=== PATIENT | male | born 1935 | race Caucasian/White ===

== ENCOUNTER 2018-09-21 22:06 | Emergency (ER) | payer MEDICARE, SELFPAY ==
[2018-09-21 22:08] VITALS: BP 151/66; PULSE 76; RESP 14; TEMP 36.6; O2SAT 97; BMI 27.6
--- NOTE | 2018-09-21 22:51 | CT_ITS ---
HISTORY: LT ARM WEAKNESS,UNABLE TO MOVE LT ARM EARLIER TONIGHT BUT RESOLVED NOWHX:CVA,HTN EXAMINATION: CT Head or Brain W/O Contrast TECHNIQUE: Multiple axial images were obtained of the brain without intravenous contrast. A radiation dose optimization technique was used for this scan. IV Contrast dosage and agent: None. COMPARISON: None FINDINGS: Normal ventricles. Age appropriate cerebral cortical atrophy. Mild cerebellar atrophy, more so on the right. No intracranial mass, hemorrhage, or acute parenchymal abnormality. The pineal gland is calcified and midline. No suspicious extra-axial fluid collection. Bilateral carotid atherosclerotic calcifications. The mastoids appear clear. Bony defect of the right frontal bone and right supraorbital rim. Corresponding defect of the anterior wall of the right frontal sinus with ipsilateral sinus opacification. The posterior wall of the right frontal sinus appears intact. CT/Brain/Head without Contrast IMPRESSION: 1. Negative for intracranial hemorrhage or acute parenchymal abnormality. 2. Mild cerebellar atrophy. 3. Chronic appearing bony defect of the right frontal skull which may be related to old trauma. Details above. Please correlate clinically. Individualized dose optimization techniques were used for this CT. at 0017 Reported and signed by: Holger Talbot MD Electronically Signed: Holger Talbot, at 0:15 EDT Tel , Service support ,
--- NOTE | 2018-09-21 22:51 | EKG12_ITS ---
Test Reason : UPPER EXTREMITY Blood Pressure : / mmHG Vent. Rate : 066 BPM Atrial Rate : 066 BPM P-R Int : 188 ms QRS Dur : 086 ms QT Int : 402 ms P-R-T Axes : 052 -04 039 degrees QTc Int : 421 ms Normal sinus rhythm Normal ECG Confirmed by JAMA[place] CH, DESTINEY ([id number]), continuity editor NABIL NICHOLS ([id number]) on 09/23/2018 9:32:14 AM Referred By: RAMAN Confirmed By:DESTINEY BERUMEN MD
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
[2018-09-21 23:25] VITALS: BP 157/69; PULSE 65; RESP 16; O2SAT 94
[2018-09-21 23:26] LABS: Bedside Glucose 129 mg/dL (70-110)
[2018-09-21 23:28] VITALS: BP 157/69; PULSE 63; RESP 16; O2SAT 94
[2018-09-21 23:31] LABS: Absolute Lymphocyte Count 0.95 X10^3/ul (0.83-4.51); Basophil# 0.02 X10^3/uL; Basophil% 0.4 % (0-1); Eosinophils% 4.3 % (0-5); Hematocrit 39.5 % (40-54); Hemoglobin 13.7 g/dl (13.0-16.5); Lymphocyte # 0.95 X10^3/ul (4.0); Lymphocyte % 20.3 % (19-41); Mean Corp Hgb Conc 34.7 g/gl (32-36); Mean Corpuscular Volume 83.5 fL (80-94); Mean Platelet Vol. 10.2 fl (6.2-12.0); Monocyte# 0.49 X10^3/uL; Monocyte% 10.4 % (0-10); Neutrophil # 3.03 X10^3/uL (2.7-7.7); Neutrophil % 64.6 % (47-70); Platelet Count 182 K/mm3 (150-450); RBC Distribution Width CV 13.2 % (11.6-14.6); RBC Distribution Width SD 39.8 fl (35.1-43.9); Red Blood Count 4.73 M/mm3 (4.6-6.2); White Blood Count 4.7 K/mm3 (4.4-11.0)
[2018-09-21 23:32] LABS: POSITIVE COUNT NO; POSITIVE DIFFERENTIAL NO; POSITIVE MORPHOLOGY NO
[2018-09-21 23:37] LABS: International Normalized Ratio 1.1; Partial Thromboplast Time 32.3 Seconds (24.1-36.2); Prothrombin Time (Protime)PT. 13.7 SECONDS (11.7-14.9)
[2018-09-21 23:46] LABS: Anion Gap 3 (5-15); BUN 21 mg/dL (7-18); BUN/Creat Ratio 18.4 RATIO (10-20); Calcium,Total 8.8 mg/dL (8.5-10.1); Chloride 109 mmol/L (98-107); Creatinine, Serum 1.14 mg/dL (0.70-1.30); EST Glomerular Filtration Rate 65 mL/min (>60); Est Glom Filt Rate - Afr Amer 79 mL/min (>60); Estimated Creatinine Clearance 52.29 ml/min; Glucose 124 mg/dL (74-106); Potassium 4.1 mmol/L (3.5-5.1); Sodium Level 138 mmol/L (136-145)
[2018-09-22] VITALS: BP 122/52; PULSE 67; RESP 16; O2SAT 95
[2018-09-22 01:00] VITALS: BP 146/70; PULSE 72; RESP 16; O2SAT 96
--- NOTE | 2018-09-22 01:16 | PCM.HP.STD ---
History of Present Illness The patient is a 83 year old M [] Past Medical History Allergies No Known Allergies Allergy (Verified 09/21/18 22:10) Home Medications: Ambulatory Orders Medication Instructions Recorded Amlodipine [Norvasc] 5 mg PO DAILY 04/28/13 Dicyclomine HCl [Bentyl] 20 mg PO 4X/DAY #10 tablet 04/28/13 Fluticasone 0.05% [Flonase Nasal 2 spray NASAL DAILY 04/28/13 [place]] Lisinopril [Zestril] 20 mg PO DAILY 04/28/13 Lorazepam [Ativan] 1 mg PO QHS PRN PRN 04/28/13 Meclizine HCl [Antivert] 12.5 mg PO BID PRN PRN 04/28/13 Metoprolol(XL)Succ [Toprol Xl] 25 mg PO DAILY 04/28/13 Omeprazole [Prilosec] 20 mg PO DAILY 04/28/13 Ondansetron [Zofran] 8 mg PO Q8H PRN PRN #5 tablet 04/28/13 traMADol [Ultram (G)] 50 mg PO Q6H PRN PRN 04/28/13 Surgical History: - - Reviewed Smoking Status: Former smoker Alcohol: None Drugs: None Patient Problems: Active and Suspected Problems TIA (transient ischemic attack) (Acute) - Physical Exam Vital Signs Temp Pulse Resp BP Pulse Ox 97.9 F 67 16 122/52 H 95 09/21/18 22:08 09/22/18 00:00 09/22/18 00:00 09/22/18 00:00 09/22/18 00:00 Oxygen Delivery Method Room Air Weight: 90 kg Body Mass Index (BMI) 27.6 Finger Stick Blood Glucose 129 Laboratory Tests Past 24 Hrs 09/21/18 09/21/18 09/21/18 23:20 23:20 23:20 WBC 4.7 RBC 4.73 Hgb 13.7 Hct 39.5 L MCV 83.5 MCH 29.0 MCHC 34.7 RDW 13.2 RDW Differential 39.8 Plt Count 182 MPV 10.2 Immature Gran % (Auto) 0.000 Neut % (Auto) 64.6 Lymph % (Auto) 20.3 Nuckolls % (Auto) 10.4 H Eos % (Auto) 4.3 Baso % (Auto) 0.4 Absolute Neuts (auto) 3.0 Absolute Lymphs (auto) 0.95 Total Counted Not Reportable PT 13.7 INR 1.1 APTT 32.3 Sodium 138 Potassium 4.1 Chloride 109 H Carbon Dioxide 26.0 Anion Gap 3 L BUN 21 H Creatinine 1.14 Estim Creat Clear Calc 52.29 Est GFR (MDRD) Af Amer 79 Est GFR (MDRD) Non-Af 65 BUN/Creatinine Ratio 18.4 Glucose 124 H Calcium 8.8 Troponin I < 0.015 POC Glucose 09/21/18 23:20 POC Glucose 129 H Assessment/Plan All Active Problems TIA (transient ischemic attack) (Acute)
--- NOTE | 2018-09-22 01:18 | ED.RN ---
PT WAS UP TO BATHROOM AND THEN INFORMED THIS NURSE AND CHARGE NURSE, MASOUD WEST RN, I THINK I'LL JUST GO HOME, I WON'T REST HERE.
[2018-09-22] MEDS: Aspirin 81 MG TAB.CHEW PO (01:52)
--- NOTE | 2018-09-22 01:54 | ED.RN ---
pt given written and verbal discharge instructions and educated by dr. starkey on leaving [facility]a. pt signs ama forms. verbalizes understanding and denies any further questions. iv d/c and covered with 2x2 gauze and paper tape. pt dresses self. educated to retnr to ed for any new or worsened sx. pt ambulates out of dept by self
== END 2018-09-22 01:56 | disposition left against medical advice (07) ==
PROVIDERS: Emergency Medicine; Emergency Provider Emergency Medicine; Family Provider Internal Medicine; PCP Internal Medicine
DX: G45.9 Transient cerebral ischemic attack, unspecified (principal); I10 Essential (primary) hypertension; K21.9 Gastro-esophageal reflux disease without esophagitis; G89.29 Other chronic pain; M54.9 Dorsalgia, unspecified; Z87.891 Personal history of nicotine dependence; Z79.891 Long term (current) use of opiate analgesic; Z79.899 Other long term (current) drug therapy
CPT/HCPCS: 70450; 80048; 82962; 84484; 85025; 85610; 85730; 93005; 99283; A4216

== ENCOUNTER 2018-09-24 09:17 | Observation (INO) | payer MEDICARE, SELFPAY ==
[2018-09-24] VITALS (9 sets, daily range): BP systolic 116–160; BP diastolic 56–89; PULSE 55–85; RESP 16–18; TEMP 36.4–36.8; O2SAT 94–96; BMI 28.2; BMI 28.4
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
--- NOTE | 2018-09-24 09:42 | EKG12_ITS ---
Test Reason : DIZZY Blood Pressure : / mmHG Vent. Rate : 067 BPM Atrial Rate : 067 BPM P-R Int : 156 ms QRS Dur : 086 ms QT Int : 392 ms P-R-T Axes : 084 005 041 degrees QTc Int : 414 ms Normal sinus rhythm Normal ECG Confirmed by DEBORAH CH, SLOAN ([id number]), editorial writer ALVARO WOLFE ([id number]) on 09/27/2018 9:28:53 AM Referred By: SUKHWINDER Confirmed By:SLOAN CABRERA MD
--- NOTE | 2018-09-24 09:48 | ED.DCSUM_ITS ---
History of Present Illness Chief Complaint: Dizziness Informant: Patient Onset: Today, Days - 3 days ago Context: Sudden Onset Timing: Lasts - 4-5 minutes Quality: Left arm pain and weakness and numbness, and dizziness Current Severity: Mild Maximum Severity: Severe Worsened by: Movement Relieved by: Rest Associated Symptoms: Dizziness, left arm pain weakness and numbness Narrative: 83-year-old male who presents to the emergency department today with dizziness, left arm pain numbness and weakness. Patient was seen here 3 days ago for left arm pain numbness and weakness that lasted a few minutes. He ended up signing out AGAINST MEDICAL ADVICE. Symptoms began again this morning over the course of the past 6 hours with pain numbness weakness of his left arm he also noted some in his left leg and he felt dizziness. He does have a history of feeling dizzy with previous stroke remotely. He states he does not have any deficits from that. He did not have any visual changes. He had no difficulty with speech. He has been able to ambulate since this began. No chest pain or shortness of breath. No vomiting or diarrhea. No diaphoresis. He has not been short of breath. No falls or injuries. Prior similar symptoms: Yes Recent Illness/Hospitalization: No - Past Medical History (1) Hypertension Status: Chronic (2) CVA (cerebral vascular accident) Status: Acute (3) Chronic back pain Status: Chronic Past Medical History - Allergies and Home Meds Allergies/Adverse Reactions: Allergies No Known Allergies Allergy (Verified 09/24/18 09:18) Primary Care Physician: Shaye Schneider DO [Primary Care Provider] - Prior records reviewed: Yes Surgical History: cholecystectomy, - - Reviewed Lives: Alone Smoking Status: Former smoker Alcohol: Rare, Occasional Review of Systems All systems negative except as indicated Musculoskeletal: Reports: Extremity Pain Neurological: Reports: Weakness, Parasthesia, Numbness Physical Exam Vital Signs/Narrative: Vital Signs Temp Pulse Resp BP Pulse Ox 09/24/18 09:18 97.8 F 85 17 116/65 94 Inital Vital Signs reviewed: Yes General: Well nourished, Well developed, No Acute Distress Head: Normocephalic, Atraumatic Eyes: Perrl, EOMI ENT: Moist mucous membranes Neck: Supple, Nontender Cardiovascular: Regular rate, Regular rhythm Respiratory: No distress, CTA bilaterally, Chest nontender Abdomen: Soft, Nontender, Nondistended, Normal bowel sounds, No masses, Hernia reducible Back: Nontender Extremities: Nontender, No edema Skin: Normal color, No rash Neurological: Alert, Oriented x3, Cranial nerves II-XII grossly intact, Normal Sensation, Weakness - left leg weakness. NIH of 1 for left leg weakness. no other neurological deficits. Psychological: Normal affect Diagnostic/Tx/Re-eval - Rhythm Strip Rhythm Strip: Sinus Rhythm - EKG Initial EKG Interpretation: Sinus Rhythm Prior: Unchanged - Medical Decision Making EKG was normal sinus rhythm rate of [address] segment or T wave changes with normal intervals and no ectopy and unchanged from previous EKG. The patient NIH was 1 for weakness of his left leg which is different from his NIH 3 days ago. However he is out of the window for TPA as he has had symptoms now for 3 days. Patient's work-up in the emergency department was essentially unremarkable. His troponin was negative. Chest x-ray unremarkable. CT head showed no acute change, showed small vessel ischemia. Unchanged from previous. Labs unremarkable. At this time due to the patient's symptoms now for the past 3 days and with new leg weakness we do feel that he would benefit from admission and further evaluation. Hospitalist contacted who agreed to admit. Patient remains hemodynamically stable. ED Disposition - Plan for ED Patient: Disposition: Acute Care Hospital [facility] Diagnosis: TIA (transient ischemic attack) Referrals: Shaye Schneider DO [Primary Care Provider] -
[2018-09-24 10:10] LABS: Bedside Glucose 148 mg/dL (70-110)
--- NOTE | 2018-09-24 10:11 | RAD_ITS ---
STUDY: X-RAY CHEST REASON FOR EXAM: Male, 83 years old. Left arm pain TECHNIQUE: PA and lateral views of the chest. COMPARISON: 07/08/2011 FINDINGS: EKG leads project over the chest. The lungs are clear and expanded. There is no demonstrated pleural abnormality. Normal size heart. Normal mediastinum and jessica. Normal visualized pulmonary arteries. There is atherosclerotic tortuosity of the aortic arch and descending thoracic aorta. There are diffuse degenerative changes of the visualized thoracic spine. Normal visualized ribs, clavicles, and shoulders. There is no demonstrated abnormality of the visualized soft tissue structures of the upper abdomen. RAD/Chest PA and Lateral IMPRESSION: Stable exam. No acute cardiopulmonary process. Electronically Signed: Palomo Arzola MD at 10:25 EDT , Service support ,
[2018-09-24 10:13] LABS: Absolute Neutrophil Count 2.8 X10^3/uL (2.0-7.7); Basophil# 0.02 X10^3/uL; Basophil% 0.4 % (0-1); Eosinophil# 0.19 X10^3/uL; Eosinophils% 4.2 % (0-5); Hematocrit 40.1 % (40-54); Lymphocyte % 22.1 % (19-41); Mean Corp Hgb Conc 34.9 g/gl (32-36); Mean Corpuscular Hgb 29.1 pg (27.0-32.0); Mean Corpuscular Volume 83.4 fL (80-94); Mean Platelet Vol. 10.7 fl (6.2-12.0); Monocyte# 0.51 X10^3/uL; Monocyte% 11.3 % (0-10); Neutrophil # 2.79 X10^3/uL (2.7-7.7); Neutrophil % 61.8 % (47-70); Platelet Count 169 K/mm3 (150-450); RBC Distribution Width CV 13.2 % (11.6-14.6); RBC Distribution Width SD 39.6 fl (35.1-43.9); Red Blood Count 4.81 M/mm3 (4.6-6.2); White Blood Count 4.5 K/mm3 (4.4-11.0)
[2018-09-24 10:16] LABS: POSITIVE COUNT NO; POSITIVE DIFFERENTIAL NO; POSITIVE MORPHOLOGY NO
[2018-09-24 10:26] LABS: Anion Gap 3 (5-15); BUN 21 mg/dL (7-18); BUN/Creat Ratio 19.4 RATIO (10-20); Calcium,Total 8.8 mg/dL (8.5-10.1); Chloride 108 mmol/L (98-107); Creatinine, Serum 1.08 mg/dL (0.70-1.30); EST Glomerular Filtration Rate 69 mL/min (>60); Est Glom Filt Rate - Afr Amer 84 mL/min (>60); Estimated Creatinine Clearance 53.51 ml/min; Glucose 155 mg/dL (74-106); Sodium Level 136 mmol/L (136-145)
[2018-09-24] MEDS: Ondansetron 4 MG/2 ML Vial IV (11:00)
[2018-09-24] MEDS: LORazepam 2 MG/ML Syringe 1 MG IV (11:01)
[2018-09-24] MEDS: Morphine 4 MG/ML Syringe IV (11:01)
--- NOTE | 2018-09-24 11:17 | MRI_ITS ---
STUDY: MRA OF THE HEAD WITHOUT CONTRAST REASON FOR EXAM: Male, 83 years old. Dizziness and left arm pain with weakness TECHNIQUE: 3-D hbcp-hr-wacplh (TOF) imaging was performed with MIPs. The study was performed unenhanced. COMPARISON: None. FINDINGS: Petrous, cavernous and supraclinoid internal carotid arteries patent however there is narrowing. The bilateral middle cerebral arteries are patent. Exam is significantly patient motion degraded with reduces sensitivity. The anterior cerebral arteries and the visualized segments appear patent. The left vertebral artery is not well visualized. Hypoplastic V4 segment of the left vertebral artery. Vertebrobasilar junction is patent. The basilar artery is patent. Posterior cerebral arteries are patent. The superior cerebellar arteries are patent. IMPRESSION: Motion degraded MR angiogram of the brain. No evidence for proximal large vessel occlusion however seen. Please consider CT angiogram of the head for complete assessment Electronically Signed: Adis Elkins, at 12:35 EDT Tel , Service support , MRI/MRA Head ONLY without Contrast
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
--- NOTE | 2018-09-24 11:17 | MRI_ITS ---
STUDY: MRA NECK WITH AND WITHOUT CONTRAST REASON FOR EXAM: Male, 83 years old. Dizziness and left arm pain and weakness with numbness for 4 days TECHNIQUE: 3-D hmff-kf-gghoiv (TOF) imaging was performed in an 1.5 T MRI scanner. 18 IV Dotarem was administered for the contrast enhanced images. COMPARISON: None. FINDINGS: The origin of the great vessels appear patent. The bilateral common carotid arteries are patent. Carotid bifurcations are patent. The left extracranial cervical internal carotid arteries patent. Focal area of more than 70% stenosis involving the proximal left cervical internal carotid artery approximately 1.4 cm distal to the carotid bifurcations seen. The origin of the right vertebral artery is patent. The right vertebral artery is patent. 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 Suspected occlusion of the left vertebral artery noted Electronically Signed: Adis Elkins, at 13:20 EDT Tel , Service support , MRI/MRA Neck WITH and W/O Contrast
--- NOTE | 2018-09-24 11:17 | MRI_ITS ---
STUDY: MRI CERVICAL SPINE WITH AND WITHOUT CONTRAST REASON FOR EXAM: Male, 83 years old. Dizziness and left-sided arm pain and weakness and numbness for 4 days TECHNIQUE: Standardized fat and water weighted pulse sequences were obtained in the sagittal and axial following administration of 18 IV Dotarem. COMPARISON: None FINDINGS: Straightening of the normal cervical lordotic curvature. Craniocervical junction appears unremarkable. Abnormal intramedullary cord signal seen at C5-C6 level likely represent cord edema or myelomalacia. No solid enhancement is seen in the region however. Mild anterior wedging of the cervical vertebra. No evidence for acute cervical spine fractures. Disc desiccation all levels. Fusion at C5-C6 and C6-C7 intervertebral disc levels. Mild anterior osteophytic spurring Level by level segmental analysis: C2-C3 level: Bilateral facet arthrosis with broad-based is bulge and uncovertebral joint degenerative changes resulting in moderate left-sided and mild right-sided neural foraminal narrowing. C4-C5 level: Uncovertebral joint and facet joint degenerative changes with broad-based disc osteophyte complexes resulting in moderate central canal stenosis and moderate to severe left-sided neural foraminal narrowing. C4-C5 level: Uncovertebral joint and facet joint degenerative changes with broad-based disc osteophyte complex resulting in moderate left-sided and mild right-sided neural foraminal narrowing with mild to moderate central canal stenosis. C5-C6 level: Uncovertebral joint and facet joint degenerative changes with posterior osteophytic spurring resulting in mild effacement of the ventral thecal sac and mild right-sided neural foraminal narrowing. C6-C7 level: Uncovertebral joint and facet joint degenerative changes with posterior spurring resulting in moderate bilateral neural foraminal narrowing and mild effacement of ventral thecal sac. C7-T1 level: No seen in central canal stenosis or neural foraminal narrowing. No evidence for acute cervical spine fractures. Exam is significantly patient motion degraded with limited sensitivity.*STIR sequence was not performed by the technologist The right vertebral artery flow-void appears patent. The left vertebral artery flow-void is not well visualized likely occluded. 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 Please see above level by level complete analysis and details. Abnormal intramedullary cord signal seen at C5-C6 level likely represent cord edema or myelomalacia. No solid enhancement is seen in the region however. Electronically Signed: Adis Elkins, at 13:57 EDT Tel , Service support , MRI/Spine Cervical W/WO Contrast
--- NOTE | 2018-09-24 14:09 | CASEMGMT ---
As per hand striper, pt has LW/POA but is unable to bring in the forms. PEPE Gu
--- NOTE | 2018-09-24 14:15 | HP.PCM_ITS ---
Problem List (1) CVA (cerebral vascular accident) Status: Acute (2) Hypertension Status: Chronic History of Present Illness Date of Admission: 09/24/18 The patient is a 83 year old M with with past medical history of stroke approximately 15 years prior, history of hypertension, who presented to the emergency room with left-sided arm pain and left-sided arm and leg weakness. He had come to the emergency room 3 days prior with dizziness and left-sided weakness and had a CT of the brain which was negative, he was recommended to stay and have a stroke work-up however he left AMA. At that time he had an episode of weakness in his left arm that began while he was driving. His left arm became weak and he was unable to hold onto the steering wheel, it fell into his lap, it became numb, and then he regained sensation and strength ap proximately 5 minutes later. This time he noted that today he developed pain in his left arm in the left forearm, elbow, proximal arm, and shoulder. He has chronic neck pain from old neck surgery. He still has some residual weakness in his left arm and leg. This is not worsened. He also notes that he has dizziness and fogginess with forgetfullness that he notes when changes directions when walking. He states that when he turns while walking he forgets where he is going. He is admitted for stroke work up. [] Past Medical History Past Medical History (Chronic Problems): Chronic Problems Hypertension (Chronic) Chronic back pain (Chronic) Allergies No Known Allergies Allergy (Verified 09/24/18 09:18) Home Medications: Ambulatory Orders Medication Instructions Recorded Amlodipine [Norvasc] 5 mg PO DAILY 04/28/13 Fluticasone 0.05% [Flonase Nasal 2 spray NASAL PRN PRN 04/28/13 [place]] Lisinopril [Zestril] 20 mg PO BID 04/28/13 Omeprazole [Prilosec] 20 mg PO DAILY 04/28/13 traMADol [Ultram (G)] 50 mg PO Q6H PRN PRN 04/28/13 Alfuzosin HCl 10 mg PO DAILY 09/24/18 Biotin 10,000 mcg PO DAILY 09/24/18 Surgical History: cholecystectomy, - - cervical spinal surgery, facial skin grafts Lives: Alone Smoking Status: Former smoker Alcohol: Rare, Occasional - *Family History Maternal History Items: No pertinent history Paternal History Items: Heart Disease Review of Systems Constitutional: Reports: - - dizziness. Denies: Chills, Fever, Weight Change HEENT: Denies: Head Aches, Sinus Congestion, Sinus Drainage Cardiovascular: Denies: Chest Pain, Palpitations Respiratory: Denies: Cough, Shortness of breath at rest, Sputum production Gastrointestinal: Denies: Abdominal Pain, Nausea, Vomiting Genitourinary: Denies: Dysuria Musculoskeletal: Reports: Arm Pain, Joint Pain, Neck Pain, Shoulder Pain. Denies: Joint Tenderness Skin: Denies: Rash, Wounds Neurological: Reports: Focal weakness. Denies: Numbness, Tingling Psychiatric: Denies: Anxiety, Depression, Homicidal Ideations, Suicidal Ideati ons Hematologic/ Lymphatic: Denies: Easy Bruising, Easy Bleeding VTE Information - Inpt Only VTE Present on Admission: No VTE Mechan Device Prophylaxis: None VTE Pharm Prophylaxis ordered?: Yes Patient Problems: Active and Suspected Problems CVA (cerebral vascular accident) (Acute) TIA (transient ischemic attack) (Acute) - Physical Exam General: Alert, Oriented x3, Cooperative HEENT: Atraumatic, PERRLA, EOMI, Normocephalic Neck: Supple, No JVD, Negative Carotid Bruits Lungs: Clear to auscultation, Normal air movement Cardiovascular: Regular rate, No murmurs Abdomen: Bowel Sounds Present, Soft, Non Tender Extremities: No edema, Capillary Refill Less than 3 Seconds Skin: No rashes, No breakdown Musculoskeletal: No Tenderness to Palpation of Joints or Extremities Neurological: Cranial nerves II-XII grossly intact Psych/Mental Status: Normal Affect, Appropriate Vital Signs Temp Pulse Resp BP Pulse Ox 97.6 F L 60 16 141/66 H 96 09/24/18 13:08 09/24/18 13:08 09/24/18 13:08 09/24/18 13:08 09/24/18 13:08 Oxygen Delivery Method Room Air Weight: 192 lb 7.417 oz Body Mass Index (BMI) 28.4 Finger Stick Blood Glucose 148 Laboratory Tests Past 24 Hrs 09/24/18 09/24/18 09:50 09:50 WBC 4.5 RBC 4.81 Hgb 14.0 Hct 40.1 MCV 83.4 MCH 29.1 MCHC 34.9 RDW 13.2 RDW Differential 39.6 Plt Count 169 MPV 10.7 Immature Gran % (Auto) 0.200 Neut % (Auto) 61.8 Lymph % (Auto) 22.1 [place] % (Auto) 11.3 H Eos % (Auto) 4.2 Baso % (Auto) 0.4 Absolute Neuts (auto) 2.8 Absolute Lymphs (auto) 1.00 Total Counted Not Reportable Sodium 136 Potassium 4.0 Chloride 108 H Carbon Dioxide 25.0 Anion Gap 3 L BUN 21 H Creatinine 1.08 Estim Creat Clear Calc 53.51 Est GFR (MDRD) Af Amer 84 Est GFR (MDRD) Non-Af 69 BUN/Creatinine Ratio 19.4 Glucose 155 H Calcium 8.8 Troponin I < 0.015 POC Glucose 09/24/18 09:56 POC Glucose 148 H Assessment/Plan All Active Problems CVA (cerebral vascular accident) (Acute) TIA (transient ischemic attack) (Acute) 1. Left sided weakness, pain upper lower extremity, dizziness - Repeat CT brain negative. MRI brain negative. 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 Neuro consult. Echo pending. 2. Orthostatic hypotension - suspect 2/2 dehydration, BUN elevated with decline in diastolic pressures from sitting to standing. IV fluids 3. Hx Prior Stroke - 15 years prior. Denies chronic deficits. 4. Chronic degenerative cervical spinal changes - prior C spine surgery 5. HTN stable. DVT ppx: lovenox DC planning: PTOT evals, neuro c/s This patient was seen by Floyd Perez PA-C under the supervision of Doctor Wiggins.
[2018-09-24] MEDS: Aspirin 81 MG TAB.CHEW PO (15:02)
[2018-09-24] MEDS: 0.9% Normal Saline 1,000 ML 100 ML IV (15:02)
[2018-09-24] MEDS: 0.9% NaCl Peripheral Flush Adult/Peds IV (17:06)
[2018-09-24] MEDS: Atorvastatin Calcium 40 MG Tablet PO (21:26)
[2018-09-25] MEDS: 0.9% Normal Saline 1,000 ML 100 ML IV (00:59)
[2018-09-25 02:45] VITALS: BP 126/57; PULSE 62; RESP 18; TEMP 36.8; O2SAT 95
[2018-09-25 03:00] VITALS: PULSE 52
[2018-09-25 06:48] VITALS: PULSE 83
[2018-09-25 08:31] LABS: Mucous, Urine 0 SEEN /hpf (<or=2+); Red Blood Cells-Urine 0 SEEN /hpf (0-5); Squamous Epithelial Cells - UA 0 SEEN /hpf (0-5)
[2018-09-25 08:45] VITALS: BP 150/75; BP 163/77; BP 171/74; PULSE 107; PULSE 109; RESP 20; TEMP 36.7; O2SAT 94
[2018-09-25 09:05] LABS: Color, Urine Yellow (Yellow); Glucose, Dipstick Normal (Normal); Ketone-Dipstick Negative (Negative); Leukocyte Esterase-Dipstick 500 /ul (Negative); Nitrite-Dipstick Negative (Negative); Occult Blood-Urine Negative /ul (Negative); Protein-Dipstick Negative (Negative); Urine Bilirubin Dipstick Negative (Negative); Urine Clarity Clear (Clear); Urine Urobilinogen Normal (Normal); Urine pH 6.5 (5.0 - 8.0)
[2018-09-25 09:12] LABS: Bacteria 2+ /hpf (None Seen); White Blood Cells 10-25 SEEN /hpf (0-5)
[2018-09-25 10:18] VITALS: PULSE 107
[2018-09-25] MEDS: Lisinopril 20 MG Tablet PO (10:18)
[2018-09-25] MEDS: Aspirin 81 MG TAB.CHEW PO (10:18)
[2018-09-25] MEDS: Pantoprazole Sodium 20 MG Tablet PO (10:18)
[2018-09-25] MEDS: amLODIPine 5 MG Tablet PO (10:18)
[2018-09-25] MEDS: Metoprolol(XL)Succ 25 MG Tablet PO (10:18)
[2018-09-25] MEDS: Erythromycin Base 1 OPTH.TUBE 1 APPLIC RIGHT EYE (10:19)
--- NOTE | 2018-09-25 11:35 | DCINST_ITS ---
- Discharge Diagnoses Current Active Problems: Current Active and Chronic Problems Hypertension (Chronic) CVA (cerebral vascular accident) (Acute) Chronic back pain (Chronic) TIA (transient ischemic attack) (Acute) You will use the following diet at home:: Cardiac Your food should be the consistency of: Regular Your liquids should be the consistency of: Regular/Thin Discharge Activity: Return to Normal Activity Allergies/Adverse Reactions: Allergies No Known Allergies Allergy (Verified 09/24/18 09:18) Medications to take at Discharge Amlodipine [Norvasc] 5 mg PO DAILY 04/28/13 Fluticasone 0.05% [Flonase Nasal [place]] 2 spray NASAL PRN PRN 04/28/13 Lisinopril [Zestril] 20 mg PO BID 04/28/13 Omeprazole [Prilosec] 20 mg PO DAILY 04/28/13 traMADol [Ultram] 50 mg PO Q6H PRN PRN 04/28/13 Biotin 10,000 mcg PO DAILY 09/24/18 Erythromycin Ophthalmic 1 applic RIGHT EYE BID 09/24/18 Aspirin [Aspirin, Baby] 81 mg PO DAILY@0800 tab.chew 09/25/18 Atorvastatin Calcium [Lipitor] 40 mg PO QHS #30 tablet 09/25/18 Prednisone 10 mg PO UD #30 tab 09/25/18 Tamsulosin HCl [Flomax] 0.4 mg PO DAILY #30 capsule 09/25/18 The following prescriptions were given: Atorvastatin Calcium [Lipitor] 40 mg PO QHS #30 tablet Prednisone 10 mg PO UD #30 tab Tamsulosin HCl [Flomax] 0.4 mg PO DAILY #30 capsule Primary Care Physician: Shaye Schneider DO [Primary Care Provider] - Please follow up with your Primary Care Physician in: 1 week Test Results: Test results from this visit will be discussed in further detail at your follow- up appointment, if applicable. Proposed Discharge Date: 09/25/18
--- NOTE | 2018-09-25 17:22 | DS.PCM_ITS ---
Discharge Date and Diagnosis Date of Admission: 09/24/18 Date of Discharge: 09/25/18 - Primary Discharge Diagnosis CVA ruled out Radiculopathy 2/2 degenerative cervical spinal changes orthostatic hypotension 2/2 medications and dehydration HTN Prior CVA - Secondary Discharge Diagnosis Chronic Problems Hypertension (Chronic) Chronic back pain (Chronic) Hospital Course and Treatment Imaging Results: CT/Brain/Head without Contrast IMPRESSION: 1. No acute intracranial hemorrhage or evolving process. Stable exam since 3 days previous. 2. Central parenchymal volume loss. White matter changes that are nonspecific but most commonly associated with chronic small vessel ischemic disease. 3. Stable chronic changes of the right frontal calvarium/sinus. RAD/Chest PA and Lateral IMPRESSION: Stable exam. No acute cardiopulmonary process. MRI Brain IMPRESSION: No evidence for acute or subacute ischemic infarction. No evidence for intracranial mass, acute hemorrhage or hydrocephalus. 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 C spine MRI FINDINGS: IMPRESSION: Cervical spondylotic changes with multilevel neural foraminal narrowing and central canal stenosis at C3-C4 level. Please see above level by level complete analysis and details. Abnormal intramedullary cord signal seen at C5-C6 level likely represent cord edema or myelomalacia. No solid enhancement is seen in the region however. MRA Head and Neck IMPRESSION: Motion degraded MR angiogram of the brain. No evidence for proximal large vessel occlusion however seen. Please consider CT angiogram of the head for complete assessment IMPRESSION: Approximately more than 70% stenosis of the proximal right cervical internal carotid artery. Suspected occlusion of the left vertebral artery noted Operations: None Procedures: None Summary of Care Provided: Hospital Course: The patient is a 83 year old M with pmhx as above who presented to the ER with c/o left arm weakness 3 days prior and dizziness. He had been driving when his arm suddenly went numb and limp for about 5 minutes. He went to the ER, had a negative CT brain, was told he needed stroke work up, however left AMA. He came with with dizziness [address] brain again negative for acute changes. Admitted for stroke work up. MRI brain was negative for acute stroke, he did have an old stroke so he was placed on aspirin and statin. MRA neck showed approx 70% stenosis proximal right cervical ICA, suspected occlusion of the left vertebral, MRA head was negative. MRI cervical spine was obtained given a hx of C spine surgery. There was neural foraminal and central canal stenosis at C3/4, and cord edema vs myelomalacia at C5/6. He was started on solumedrol. He improved significantly by the following day. He was transitioned to a prednisone taper. As for his dizziness he was found to have increased BUN and positive orthos. His alfuzosin was DCd and he was changed to flomax. He was given IV fluids for dehyration. He was Discharged home in stable condition. He was advised to follow up with his PCP in 1 week. This patient was seen by Floyd Perez PA-C under the supervision of Dr. Sharp. [] - Physical Exam General: Alert, Oriented x3, Cooperative HEENT: Atraumatic, PERRLA, EOMI, Normocephalic Neck: Supple, No JVD, Negative Carotid Bruits Lungs: Clear to auscultation, Normal air movement Cardiovascular: Regular rate, No murmurs Abdomen: Bowel Sounds Present, Soft, Non Tender Extremities: No edema, Capillary Refill Less than 3 Seconds Skin: No rashes, No breakdown Musculoskeletal: No Tenderness to Palpation of Joints or Extremities Neurological: Cranial nerves II-XII grossly intact Psych/Mental Status: Normal Affect, Appropriate Vital Signs Temp Pulse Resp BP Pulse Ox 98.1 F 107 H 20 H 171/74 H 94 09/25/18 08:45 09/25/18 10:18 09/25/18 08:45 09/25/18 08:45 09/25/18 08:45 Oxygen Delivery Method Room Air Weight: 192 lb 7.417 oz Body Mass Index (BMI) 28.4 Finger Stick Blood Glucose 148 Intake and Output for Last 24 Hours 09/23/18 09/24/18 09/25/18 23:59 23:59 23:59 Intake Total 1121 / 1121 1516 / 1516 Balance 1121 / 1121 1516 / 1516 Laboratory Tests Past 24 Hrs 09/25/18 08:22 Urine Color Yellow Urine Clarity Clear Urine pH 6.5 Ur Specific [place] 1.010 Urine Protein Negative Urine Glucose (UA) Normal Urine Ketones Negative Urine Occult Blood Negative Urine Nitrite Negative Urine Bilirubin Negative Urine Urobilinogen Normal Ur Leukocyte Esterase 500 H Urine RBC 0 SEEN Urine WBC 10-25 SEEN Ur Squamous Epith Cells 0 SEEN Urine Bacteria 2+ Urine Mucus 0 SEEN Discharge Diet: Low fat/ Low Cholesterol, 2000 mg Sodium Diet Discharge Activity: Return to Normal Activity Home Medications: Medications to take at Discharge Amlodipine [Norvasc] 5 mg PO DAILY 04/28/13 Fluticasone 0.05% [Flonase Nasal [place]] 2 spray NASAL PRN PRN 04/28/13 Lisinopril [Zestril] 20 mg PO BID 04/28/13 Omeprazole [Prilosec] 20 mg PO DAILY 04/28/13 traMADol [Ultram] 50 mg PO Q6H PRN PRN 04/28/13 Biotin 10,000 mcg PO DAILY 09/24/18 Erythromycin Ophthalmic 1 applic RIGHT EYE BID 09/24/18 Aspirin [Aspirin, Baby] 81 mg PO DAILY@0800 tab.chew 09/25/18 Atorvastatin Calcium [Lipitor] 40 mg PO QHS #30 tablet 09/25/18 Prednisone 10 mg PO UD #30 tab 09/25/18 Tamsulosin HCl [Flomax] 0.4 mg PO DAILY #30 capsule 09/25/18 Following Prescrptions Were Given to Patient: Atorvastatin Calcium [Lipitor] 40 mg PO QHS #30 tablet Prednisone 10 mg PO UD #30 tab Tamsulosin HCl [Flomax] 0.4 mg PO DAILY #30 capsule Primary Care Physician: Shaye Schneider DO [Primary Care Provider] - Please follow up with your Primary Care Physician in: 1 week Disposition: Home Minutes spent on discharge:: 35 Patient Condition:: Stable Medical Necessity - Tobacco Use Smoking Status: Former smoker Meaningful Use Info Meaningful Use Diagnoses (Choose all that apply): None applicable
== END 2018-09-25 11:34 | disposition home or self-care (01) ==
LOC: ED 10:45 → PCU 11:02
PROVIDERS: Admitting Provider Internal Medicine; Emergency Provider Physician Assistant Medical; Family Provider Internal Medicine; PCP Internal Medicine; Visit Provider Internal Medicine
DX: I95.2 Hypotension due to drugs (principal); T50.905A Adverse effect of unspecified drugs, medicaments and biological substances, initial encounter; M50.10 Cervical disc disorder with radiculopathy, unspecified cervical region; I10 Essential (primary) hypertension; M79.602 Pain in left arm; G89.29 Other chronic pain; Y92.9 Unspecified place or not applicable; R29.701 NIHSS score 1; Z87.891 Personal history of nicotine dependence; Z79.899 Other long term (current) drug therapy; Z86.73 Personal history of transient ischemic attack (TIA), and cerebral infarction without residual deficits
CPT/HCPCS: 70450; 70544; 70549; 70551; 71046; 72156; 80048; 81001; 82962; 84484; 85025; 93005; 96361; 96374; 96375; 96376; 97162; 97165; 99218; 99285; A9575; J7030; A4216; G0378; J2405

== ENCOUNTER 2019-03-14 04:06 | Emergency (ER) | payer MEDICARE, SELFPAY ==
[2018-09-24 13:09] VITALS: BMI 28.4
[2019-03-14 04:07] VITALS: BP 166/79; PULSE 72; RESP 20; TEMP 36.6; O2SAT 96; BMI 31.1
[2019-03-14 04:12] VITALS: BP 96/61
--- NOTE | 2019-03-14 04:20 | CT_ITS ---
STUDY: CT BRAIN WITHOUT CONTRAST REASON FOR EXAM: Male, 83 years old. Near syncope. RADIATION DOSAGE (If Supplied By Facility): CTDIvol = ( 44.99 ) mGy, DLP = ( 812.98 ) mGycm TECHNIQUE: Transaxial CT imaging of the brain was performed without administration of intravenous contrast material. Multiplanar reformations are submitted for interpretation. Individualized dose optimization techniques were used for this CT. COMPARISON: MRI of the brain dated September 24, 2018. FINDINGS: Normal soft tissue structures. There is deformity of the right paramedian and central frontal cranium involving primarily the outer table of the right frontal sinus. This is unchanged since the previous study. There is mild cerebral atrophy with widening of the extra-axial spaces and ventricular dilatation. Normal white matter tracts of the cerebral hemispheres. Normal basal ganglia and thalami. Normal brainstem. There is a small area of encephalomalacia involving the right cerebellum is probably related to old infarct. This is unchanged since the previous study. There may also be tiny old infarct involving the left cerebellum. There is no intracranial hemorrhage. There is mild atherosclerotic calcification of the intracranial arteries. The right frontal sinus no longer exists. The left frontal sinus, ethmoid, maxillary and sphenoid sinuses appear to be clear. CT/Brain/Head without Contrast IMPRESSION: 1. Chronic involutional changes of the brain. 2. No CT evidence of acute intracranial hemorrhage. 3. Unchanged postoperative appearance of the right frontal sinus and right frontal cranium. Electronically Signed: Kezia Lugo MD at 5:07 EST , Service support ,
--- NOTE | 2019-03-14 04:20 | RAD_ITS ---
STUDY: X-RAY CHEST REASON FOR EXAM: Male, 83 years old. Near syncope. TECHNIQUE: Single AP portable view of the chest. COMPARISON: September 24, 2018. FINDINGS: Cardiac monitoring leads are present. The lungs are hyperexpanded. There is diffuse perihilar interstitial thickening similar to previous study. There is no demonstrated pleural abnormality. Normal size heart. Normal mediastinum and jessica. There is prominence of the pulmonary hilar arteries without peripheral pulmonary vascular congestion. There is atherosclerotic tortuosity of the aortic arch and descending thoracic aorta. There are diffuse degenerative changes of the visualized thoracic spine. Normal visualized ribs, clavicles, and shoulders. There is no demonstrated abnormality of the visualized soft tissue structures of the upper abdomen. RAD/Chest 1 View IMPRESSION: No radiographic evidence of acute cardiopulmonary disease. Electronically Signed: Kezia Lugo MD at 4:54 EST , Service support ,
--- NOTE | 2019-03-14 04:20 | EKG12_ITS ---
Test Reason : SYNCOPE Blood Pressure : / mmHG Vent. Rate : 068 BPM Atrial Rate : 068 BPM P-R Int : 194 ms QRS Dur : 086 ms QT Int : 400 ms P-R-T Axes : 056 000 035 degrees QTc Int : 425 ms Normal sinus rhythm Normal ECG Confirmed by JAMAICA CH, DESTINEY ([id number]), advertising editor ALVARO WOLFE ([id number]) on 03/15/2019 1:03:34 PM Referred By: JULISSA Confirmed By:DESTINEY BERUMEN MD
[2019-03-14 04:28] LABS: Absolute Lymphocyte Count 1.11 X10^3/uL (0.83-4.51); Basophil# 0.04 X10^3/uL; Basophil% 0.7 % (0-1); Eosinophil# 0.24 X10^3/uL; Hematocrit 41.9 % (40-54); Hemoglobin 14.3 g/dL (13.0-16.5); Lymphocyte # 1.11 X10^3/ul (4.0); Lymphocyte % 18.6 % (19-41); Mean Corp Hgb Conc 34.1 g/dL (32-36); Mean Corpuscular Hgb 28.9 pg (27.0-32.0); Mean Corpuscular Volume 84.6 fL (80-94); Monocyte# 0.53 X10^3/uL; Monocyte% 8.9 % (0-10); NRBC Flagged by Analyzer 0 % (0-5); Neutrophil # 4.02 X10^3/uL (2.7-7.7); Neutrophil % 67.5 % (47-70); Platelet Count 186 K/mm3 (150-450); RBC Distribution Width CV 12.9 % (11.6-14.6); RBC Distribution Width SD 39.9 fl (35.1-43.9); Red Blood Count 4.95 M/mm3 (4.6-6.2)
[2019-03-14 04:40] LABS: International Normalized Ratio 1.1; Prothrombin Time (Protime)PT. 13.8 SECONDS (11.7-14.9)
[2019-03-14 04:41] LABS: Partial Thromboplast Time 32.1 Seconds (24.1-36.2)
[2019-03-14 04:45] LABS: Anion Gap 4 (5-15); BUN 18 mg/dL (7-18); BUN/Creat Ratio 20.5 RATIO (10-20); Calcium,Total 8.8 mg/dL (8.5-10.1); Chloride 108 mmol/L (98-107); Creatinine, Serum 0.88 mg/dL (0.70-1.30); EST Glomerular Filtration Rate 88 mL/min (>60); Est Glom Filt Rate - Afr Amer 107 mL/min (>60); Glucose 140 mg/dL (74-106); Potassium 3.9 mmol/L (3.5-5.1); Sodium Level 140 mmol/L (136-145)
[2019-03-14 04:47] VITALS: BP 146/67; BP 153/67; BP 169/76; PULSE 69; PULSE 71; PULSE 77
--- NOTE | 2019-03-14 05:22 | ED.DCSUM_ITS ---
- ER Visit Summary Date of Service: 03/14/19 Chief Complaint: Dizzy History of Present Illness: The patient is a 83 M with dizziness that started suddenly when he woke up. This was just prior to arrival. He was lying in bed. He felt dazed. He felt like he might pass out. He denies vertigo. Denies vision changes, speech changes, facial droop, weakness, or numbness. Symptoms lasted a few seconds. Patient has a history of stroke and TIA as well as hypertension and a remote neck fracture. He takes aspirin but no other blood thinners. He was evaluated for stroke at this hospital in September of this year. He had MRI and MRA that showed possible old cerebellar infarcts. 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 He said he followed up with neurology and vascular at an outside facility 5 months ago. They said he was not a surgical candidate. Physical Examination: Afebrile and vital signs unremarkable. Alert and oriented. Cranial nerves grossly intact. Normal strength and sensation. Normal cerebellar testing. NIH stroke scale is 0. Head and neck otherwise unremarkable. Heart regular. Lungs clear. Abdomen soft. Skin appears normal. Test Results: EKG shows sinus rhythm at a rate of 68. No sign of ischemia or i nfarction pattern. CBC unremarkable. BMP unremarkable. Coags normal. Troponin normal. Chest x-ray showed nothing acute. CT brain showed chronic changes but nothing acute. Emergency Department Course and Treatment: Patient was treated with a small fluid bolus. Orthostatics were negative. He was placed on the monitor. No events noted. Patient is preliminary ED work-up was unremarkable. Patient was advised that we have not evaluated his vasculature. He declined further testing. He said that he had some known occlusions, and was not a surgical candidate. He does not want further imaging or admission. He is feeling better and has no current symptoms. Advised him that I cannot rule out stroke, but his symptoms are very atypical for stroke. I advised that other things such as cardiac etiologies can cause syncope and near syncope. So far his work-up was unremarkable. Patient would like to be discharged. He has a reunion later today. He does not want to be admitted. I advised that we have not fully worked him up, he said he is aware. He will follow-up with his doctor or return for any new or worsening issues. Treatment Plan: As above Disposition: Discharge Impression: 1. Near syncope This note was generated with [employer] dictation software. It may contain incorrect words, spelling, and punctuation that were not noted in review of the chart prior to signing ED Disposition - Plan for ED Patient: Referrals: Shaye Schneider DO [Primary Care Provider] -
--- NOTE | 2019-03-14 05:26 | ED.DEP ---
ED Disposition - Plan for ED Patient: Instructions: NEAR SYNCOPE, Unknown Referrals: Shaye Schneider DO [Primary Care Provider] -
[2019-03-14 05:35] VITALS: BP 149/48; PULSE 82; RESP 18; O2SAT 97
== END 2019-03-14 06:11 | disposition home or self-care (01) ==
LOC: ED 05:04
PROVIDERS: Emergency Provider Emergency Medicine; Family Provider Internal Medicine; PCP Internal Medicine
DX: R55 Syncope and collapse (principal); I10 Essential (primary) hypertension; Z86.73 Personal history of transient ischemic attack (TIA), and cerebral infarction without residual deficits; Z79.82 Long term (current) use of aspirin; Z79.899 Other long term (current) drug therapy
CPT/HCPCS: 70450; 71045; 80048; 84484; 85025; 85610; 85730; 93005; 96360; 99285; J7030; A4216

== ENCOUNTER → 2021-04-02 15:35 | Outpatient (CLI) | payer MEDICARE, SELFPAY ==
--- NOTE | 2021-04-02 15:38 | CT_ITS ---
STUDY: CTA NECK WITH CONTRAST REASON FOR EXAM: Male, 85 years old. Mental status change RADIATION DOSAGE (If Supplied By Facility): CTDIvol = ( 30.05 ) mGy, DLP = ( 584.21 ) mGycm TECHNIQUE: CT angiography with multi-detector data acquisition was performed from the aortic arch to the skull base following intravenous administration of IV 100mL [id number]-[id number]. MIP images were reconstructed from the axial data set. Post-processing of the angiographic images was performed, with multiplanar reformation and 3D reconstruction. Individualized dose optimization techniques were used for this CT. COMPARISON: MRA from 2019 FINDINGS: AORTIC ARCH: Normal visualized aortic arch. Normal origins of the brachiocephalic, left common carotid, and left subclavian arteries. RIGHT CAROTID ARTERIES: Normal right common carotid artery (CCA). Normal right common carotid bulb. Normal origin of the right internal carotid (ICA) artery. Approximately 1 cm distal to the origin of the right ICA there is a 80% stenosis seen on axial images 234 through 237, series 2. The right ICA quickly resumes a normal course and caliber and no further stenosis is noted. This represents a slight increase in stenosis since the previous MRA. Normal visualized cervical portion of the right internal carotid artery. Normal origin of the right external carotid artery (ECA). LEFT CAROTID ARTERIES: Normal left common carotid artery (CCA). Normal left common carotid bulb. Normal origin of the left internal carotid (ICA) artery without a hemodynamically significant stenosis. Normal visualized cervical portion of the left internal carotid artery. Normal origin of the left external carotid artery (ECA). VERTEBRAL ARTERIES: Normal right vertebral artery. The left vertebral artery shows a very thin strand at its origin and in its proximal course before it occludes on axial image 179. It is occluded until the C2 ring where it reconstitutes from collateral flow. Source images do not show evidence of a suspicious enhancing lesion, no airway narrowing or deviation. No thyroid nodules. Bony structures show degenerative changes, lung apices clear. CT/CTA Neck W/WO Contrast IMPRESSION: 80+ percent stenosis of the right ICA just distal to its origin. The right ICA quickly resumes its normal course and caliber, no further stenosis noted. 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 Electronically Signed: Rupesh Avendano MD at 11:36 EST , Service support ,
[2021-04-02 15:56] LABS: CREATININE FINGERSTICK 0.8 mg/dL (0.70-1.30); EGFR FINGERSTICK > 60.0000 mL/min (>60)
== END ==
PROVIDERS: PCP Internal Medicine; Referring Provider Internal Medicine; Visit Provider Internal Medicine
DX: I65.21 Occlusion and stenosis of right carotid artery (principal)
CPT/HCPCS: 70498; Q9967

== ENCOUNTER 2021-04-08 20:19 | Emergency (ER) | payer MEDICARE, SELFPAY ==
[2021-04-08 20:20] VITALS: BP 168/86; PULSE 70; RESP 18; TEMP 36.3; O2SAT 97; BMI 27.6
--- NOTE | 2021-04-08 21:32 | EKG12_ITS ---
Test Reason : DYSRHYTHMIA Blood Pressure : / mmHG Vent. Rate : 068 BPM Atrial Rate : 068 BPM P-R Int : 188 ms QRS Dur : 084 ms QT Int : 404 ms P-R-T Axes : 059 000 044 degrees QTc Int : 429 ms Sinus rhythm with Premature atrial complexes Otherwise normal ECG Confirmed by DEBORAH CH, SLOAN ([id number]), school photograph editor EUFEMIA KELLY ([id number]) on 04/10/2021 9:00:50 AM Referred By: BB Confirmed By:SLOAN CABRERA MD
[2021-04-08 21:42] VITALS: BP 158/59; PULSE 72; RESP 20; O2SAT 96
--- NOTE | 2021-04-08 21:45 | RAD_ITS ---
EXAM: XR CHEST, 1 VIEW CLINICAL INDICATION: Stroke TECHNIQUE: Frontal view of the chest. This report was created using [employer] report generation technology. COMPARISON: 03/14/2019 chest x-ray FINDINGS: LUNGS AND PLEURAL SPACES: Mild fibrotic changes at the lung bases. No consolidation. No pleural effusion or pneumothorax. HEART: Unremarkable. Cardiac silhouette not enlarged. MEDIASTINUM: Central airways and mediastinal contour are unremarkable. BONES/JOINTS: Degenerative changes of the spine and acromioclavicular joints. SOFT TISSUES: Unremarkable. VASCULATURE: Atherosclerotic calcifications of the nonenlarged thoracic aortic arch. RAD/Chest 1 View (Portable) IMPRESSION: No acute disease. Electronically Signed: Andrés Nelson MD at 22:15 EST Tel , Service support ,
[2021-04-08 21:50] LABS: Absolute Lymphocyte Count 0.96 X10^3/uL (0.83-4.51); Absolute Neutrophil Count 3.2 X10^3/uL (2.0-7.7); Basophil# 0.04 X10^3/uL; Basophil% 0.8 % (0-1); Eosinophil# 0.17 X10^3/uL; Eosinophils% 3.5 % (0-5); Hematocrit 38.2 % (40-54); Hemoglobin 13.1 g/dL (13.0-16.5); Lymphocyte # 0.96 X10^3/ul (0.83-4.51); Lymphocyte % 19.7 % (19-41); Mean Corp Hgb Conc 34.3 g/dL (32-36); Mean Corpuscular Hgb 29.8 pg (27.0-32.0); Mean Corpuscular Volume 86.8 fL (80-94); Mean Platelet Vol. 10.6 fl (6.2-12.0); Monocyte# 0.48 X10^3/uL; Monocyte% 9.9 % (0-10); NRBC Flagged by Analyzer 0 % (0-5); Neutrophil % 65.7 % (47-70); Platelet Count 176 K/mm3 (150-450); RBC Distribution Width CV 13.2 % (11.6-14.6); RBC Distribution Width SD 41.5 fl (35.1-43.9); White Blood Count 4.9 K/mm3 (4.4-11.0)
[2021-04-08 21:56] LABS: International Normalized Ratio 1.1; Prothrombin Time (Protime)PT. 13.2 SECONDS (11.7-14.9)
[2021-04-08 21:59] LABS: Anion Gap 6 (5-15); BUN 23 mg/dL (7-18); Calcium,Total 8.4 mg/dL (8.5-10.1); Chloride 110 mmol/L (98-107); Creatinine, Serum 0.96 mg/dL (0.70-1.30); EST Glomerular Filtration Rate 79 mL/min (>60); Est Glom Filt Rate - Afr Amer 96 mL/min (>60); Estimated Creatinine Clearance 56.26 ml/min; Glucose 177 mg/dL (74-106); Potassium 4.2 mmol/L (3.5-5.1); Sodium Level 143 mmol/L (136-145)
--- NOTE | 2021-04-08 22:09 | EDS_ITS ---
HPI History of Present Illness Chief Complaint: Dizziness Informant: patient Onset/Context/Timing Onset: Hours (1) Context: Sudden Onset (started suddenly w/ turning head to the side) Timing: Intermittent (once tonight) and Lasts (10-20 min) Quality: spinning vertigo Location: head Current Severity: Gone Maximum Severity: Severe Worsened by: turning head Relieved by: remaining still Associated Symptoms Associated Symptoms: nausea, disoriented transiently, felt hot Narrative Narrative: Patient presents with an acute episode of vertigo that he triggered by turning his head while sitting at home. States he has had vertigo before, but he is also had strokes in the past, and since it was so severe, he thought he would get checked. He felt really hot and did not remember feeling like that before. No chest pain, diplopia, peripheral neurologic symptoms, fall, or injury. No recent injury. No recent illness. Prior similar symptoms: Yes [facility] Medical History (Updated 04/09/21 @ 03:[address] Power Russell MD) Chronic back pain CVA (cerebral vascular accident) Hypertension TIA (transient ischemic attack) Home Medications amlodipine 5 mg PO DAILY 04/28/13 [History Last Taken 09/23/18] fluticasone propionate 2 spray NASAL PRN PRN 04/28/13 [History Last Taken Unknown] lisinopril 20 mg PO BID 04/28/13 [History Last Taken 09/23/18] omeprazole 20 mg PO DAILY 04/28/13 [History Last Taken 09/23/18] tramadol 50 mg PO Q6H PRN PRN 04/28/13 [History Last Taken 09/24/18 N] biotin 10,000 mcg PO DAILY 09/24/18 [History Last Taken 09/23/18] erythromycin 1 applic RIGHT EYE BID 09/24/18 [History Last Taken 09/24/18 09:00] aspirin 81 mg PO DAILY@0800 tab.chew 09/25/18 [Rx Last Taken Unknown] tamsulosin [Flomax] 0.4 mg PO DAILY #30 capsule 09/25/18 [Rx Last Taken Unknown] B complex-minerals 1 ea PO DAILY 03/14/19 [History Last Taken Unknown] ergocalciferol (vitamin D2) 10,000 unit PO DAILY 03/14/19 [History Last Taken Unknown] meclizine 25 mg PO Q8H PRN #20 tab 04/09/21 [Rx Last Taken Unknown] Allergy/AdvReac Type Severity Reaction Status Date / Time No Known Allergies Allergy Verified 04/08/21 20:23 Social History Smoking Status: Former smoker ROS ROS ED Constitutional Constitutional ED: Denies chills or fever(s) Eyes Eyes: Denies change in vision or diplopia ENT ENT ED: Denies rhinorrhea or sore throat Cardiovascular Cardiovascular: Denies chest pain or palpitations Respiratory/Chest Respiratory/Chest: Denies cough or dyspnea Gastrointestinal Gastrointestinal: Reports nausea; Denies abdominal pain, diarrhea or vomiting Genitourinary Genitourinary ED: Denies dysuria or hematuria Musculoskeletal Musculoskeletal: Denies back pain or neck pain Integumentary Denies abscess or rash Neurologic Neurologic: Reports as per HPI, vertigo and other Details: Transient disorientation, resolved ; Denies headache(s), paresthesias or weakness Psychiatric Psychiatric: Denies anxiety or suicidal thoughts EXAM Physical Exam Const Vital Signs: 04/08/21 20:20 04/08/21 20:43 04/08/21 21:42 Temperature 97.4 F L Temperature Source Temporal Pulse Rate 70 72 Respiratory Rate 18 20 H Respiratory Effort Normal Respiratory Pattern Normal Blood Pressure 168/86 H 158/59 H Blood Pressure Mean 113 92 Pulse Ox 97 96 Oxygen Delivery Method Room Air Room Air 04/08/21 22:13 04/08/21 23:35 04/09/21 00:13 Temperature Temperature Source Pulse Rate 70 63 63 Respiratory Rate 18 13 16 Respiratory Effort Respiratory Pattern Blood Pressure 176/93 H 144/53 H 168/75 H Blood Pressure Mean 120 83 106 Pulse Ox 95 93 95 Oxygen Delivery Method Room Air Room Air Room Air 04/09/21 02:07 Temperature Temperature Source Pulse Rate 66 Respiratory Rate 15 Respiratory Effort Respiratory Pattern Blood Pressure 161/64 H Blood Pressure Mean 96 Pulse Ox 95 Oxygen Delivery Method Room Air Positive well nourished and well developed General Appearance ED: well developed and NAD HEENT Reports normocephalic, head/scalp atraumatic, TM's clear, TM's normal bilaterally and moist mucous membranes normocephalic and atraumatic Tympanic Membrane ED: Yes TM's clear Eyes PERRL and EOMs intact bilaterally Eyes Narrative: Horizontal nystagmus to the right mostly. No vertical or rotatory nystagmus. Neck no lymphadenopathy, no meningeal signs and no JVD Neck Narrative: Very limited range of motion, chronic since the 1960s since patient had a cervical spine fracture according to him Resp normal respiratory effort and clear to auscultation bilaterally Cardio regular rate, regular rhythm and no murmurs GI non-tender and non-distended Auscultation: normoactive bowel sounds Palpation: soft Back/Spine no CVA tenderness General Back: other FROM Extremity normal to inspection General Extremety ED: Negative for edema, pulses abnormal or tenderness General Extremity: Negative for edema or pulses abnormal Neuro oriented x3, CN's II-XII intact bilaterally and no sensory deficits noted Neuro Narrative: NIHSS 0. Normal [id number] and [id number] bilaterally. Normal speech, conversive in full sentences without difficulty, pleasant. Not able to perform Basilio-Hallpike due to patient unable to turn neck very far chronically. Sensorium / Orientation: awake and alert Motor Exam: strength 5/5 throughout Skin no rashes or lesions noted and no wounds MDM MDM MDM Narrative Medical decision making narrative: Work-up is negative. Patient is ambulatory without any difficulty, ataxia, or recurrent vertigo. He was offered admission and wants to go home. He just had a CT angiography of the neck vessels, peers to be an 80% stenosis on the right carotid. The vertebral that is occluded is old. I discussed that with him and I do not think it is responsible for his symptoms today which sound more peripheral, he was given meclizine here after he passes dysphagia screening and will be given a prescription use as needed we discussed reasons to return. Lab Data Attestation: I reviewed the patient's lab results. Labs: Laboratory Results - last 24 hr 04/08/21 04/08/21 04/08/21 21:10 21:10 21:10 WBC 4.9 RBC 4.40 L Hgb 13.1 Hct 38.2 L MCV 86.8 MCH 29.8 MCHC 34.3 RDW Std Deviation 41.5 RDW Coeff of Jackelin 13.2 Plt Count 176 MPV 10.6 Immature Gran % (Auto) 0.400 Neut % (Auto) 65.7 Lymph % (Auto) 19.7 [place] % (Auto) 9.9 Eos % (Auto) 3.5 Baso % (Auto) 0.8 Absolute Neuts (auto) 3.2 Absolute Lymphs (auto) 0.96 Nucleated RBC % 0 PT 13.2 INR 1.1 APTT 33.0 Sodium 143 Potassium 4.2 Chloride 110 H Carbon Dioxide 27.0 Anion Gap 6 BUN 23 H Creatinine 0.96 Estim Creat Clear Calc 56.26 Est GFR (MDRD) Af Amer 96 Est GFR (MDRD) Non-Af 79 BUN/Creatinine Ratio 24.0 H Glucose 177 H Calcium 8.4 L Radiography Diagnostic Testing: Clinical Impression(s) from Imaging Studies Chest X-Ray 04/08/21 21:45 IMPRESSION: No acute disease. Electronically Signed: Andrés Nelson MD at 22:15 EST Tel , Service support , Brain CT 04/08/21 22:09 IMPRESSION: No acute intracranial pathology. Electronically Signed: Andrés Nelson MD at 22:50 EST Tel , Service support , Rhythm Strip Rhythm Strip: Sinus Rhythm Rate: 70 Ectopy: PAC(s) EKG Initial EKG: Attestation: I personally reviewed and interpreted this EKG as follows: Interpretation: Sinus Rhythm and No Acute Injury Pattern Discharge Plan Triage Chief Complaint: Dizziness ED Provider: Power Russell Dx/Rx/DC Orders Clinical Impression: Vertigo, peripheral Instructions: ED Vertigo, Unspecified Prescriptions: New meclizine [meclizine] 25 MG tablet 25 mg PO Q8H PRN (Reason: Dizziness) Qty: 20 RF: 0 No Action lisinopril 20 MG tablet 20 mg PO BID RF: 0 amlodipine 5 MG tablet 5 mg PO DAILY RF: 0 tramadol 50 MG tablet 50 mg PO Q6H PRN PRN (Reason: Pain) RF: 0 omeprazole 20 MG capsule 20 mg PO DAILY RF: 0 fluticasone propionate 1 SPRAY spray,suspension 2 spray NASAL PRN PRN (Reason: Allergies) RF: 0 biotin 10,000 MCG capsule 10,000 mcg PO DAILY RF: 0 erythromycin 1 APPLIC ointment 1 applic Right Eye BID RF: 0 aspirin 81 MG tablet,chewable 81 mg PO DAILY@0800 RF: 0 tamsulosin [Flomax] 0.4 MG capsule 0.4 mg PO DAILY Qty: 30 RF: 0 B complex-minerals 1 EACH tablet 1 ea PO DAILY RF: 0 ergocalciferol (vitamin D2) 50,000 UNIT capsule 10,000 unit PO DAILY RF: 0 Primary Care Provider: Shaye Schneider Referrals: Shaye Schneider DO [Primary Care Provider] - 2 Days Disposition Disposition: Home, Self Care
--- NOTE | 2021-04-08 22:09 | CT_ITS ---
EXAM: CT HEAD WITHOUT INTRAVENOUS CONTRAST CLINICAL INDICATION: vertigo TECHNIQUE: Multiple axial images were obtained of the head without intravenous contrast. CTDIvol = ( 44.99 ) mGy, DLP = ( 812.98 ) mGycm This CT exam was performed using one or more of the following dose reduction techniques: automated exposure control, adjustment of the mA and/or kV according to patient size, and/or use of iterative reconstruction technique. This report was created using [employer] report generation technology. COMPARISON: CT head 03/14/2019 FINDINGS: BRAIN AND EXTRA-AXIAL SPACES: Redemonstration of chronic ischemic small vessel disease, diffuse parenchymal atrophy, and/or focal infarct involving the right cerebellum. No intra- or extra-axial hemorrhage. No intracranial mass or mass effect. No hydrocephalus. Basal cisterns are patent. BONES/JOINTS: Unremarkable. No discrete lytic or blastic abnormalities. VASCULATURE: Redemonstration of carotid siphon and vertebrobasilar atherosclerotic calcifications. SINUSES: Unchanged postoperative appearance involving the right frontal sinus and right frontal cranium. Mild scattered paranasal sinus mucosal thickening. No air-fluid levels. MASTOID AIR CELLS: Unremarkable. Clear. ORBITS: Visualized globes, extraocular muscles, optic nerves and retrobulbar fat appear unremarkable. CT/Brain/Head without Contrast IMPRESSION: No acute intracranial pathology. Electronically Signed: Andrés Nelson MD at 22:50 EST Tel , Service support ,
[2021-04-08 22:13] VITALS: BP 176/93; PULSE 70; PULSE 71; RESP 15; RESP 18; O2SAT 95
[2021-04-08] MEDS: Meclizine HCl 25 MG Tablet PO (22:18)
[2021-04-08 23:35] VITALS: BP 144/53; PULSE 63; RESP 13; O2SAT 93
[2021-04-09 00:13] VITALS: BP 168/75; PULSE 63; RESP 16; O2SAT 95
[2021-04-09 02:07] VITALS: BP 161/64; PULSE 66; RESP 15; O2SAT 95
[2021-04-09 03:46] VITALS: PULSE 69; RESP 19; O2SAT 95
== END 2021-04-09 03:46 | disposition home or self-care (01) ==
PROVIDERS: Emergency Provider Emergency Medicine; PCP Internal Medicine
DX: H81.399 Other peripheral vertigo, unspecified ear (principal); I10 Essential (primary) hypertension; G89.29 Other chronic pain; Z79.899 Other long term (current) drug therapy; Z79.82 Long term (current) use of aspirin; Z86.73 Personal history of transient ischemic attack (TIA), and cerebral infarction without residual deficits; Z87.891 Personal history of nicotine dependence; I49.1 Atrial premature depolarization; R11.0 Nausea; R41.0 Disorientation, unspecified; H55.09 Other forms of nystagmus; R29.700 NIHSS score 0
CPT/HCPCS: 70450; 71045; 80048; 85025; 85610; 85730; 93005; 99284; A4216

== ENCOUNTER 2021-10-12 02:11 | Emergency (ER) | payer MEDICARE, SELFPAY ==
[2021-10-12 02:12] VITALS: PULSE 78; RESP 16; TEMP 36.5; O2SAT 97; BMI 27.8
[2021-10-12 02:16] VITALS: BP 155/67
--- NOTE | 2021-10-12 02:37 | RAD_ITS ---
STUDY: X-RAY - LUMBAR SPINE REASON FOR EXAM: Male, 86 years old. pain NKI C/O SEVERE LBP THAT STARTED ON 10/11 TECHNIQUE: 3 view(s) of the lumbar spine were obtained. COMPARISON: None FINDINGS: Vertebral bodies are normal in height. No definite fracture demonstrated. Loss of the normal lumbar lordosis. Disc space narrowing and osteophytes at all levels. Facet arthropathy at the lower levels. No paravertebral soft tissue mass identified. Aortic calcifications. RAD/Lumbar Spine 2 or 3 Views IMPRESSION: No evidence of acute fracture or subluxation. Degenerative changes. Electronically Signed: Lou Razo MD at 3:31 EDT ,
--- NOTE | 2021-10-12 02:38 | EDS_ITS ---
HPI History of Present Illness Chief Complaint: Back Informant: patient Onset/Context/Timing Onset: Days (2-3) Context: Gradual Onset Timing: Intermittent Quality: Aching Location: Lumbar Current Severity: Mild Maximum Severity: Severe Worsened by: improves with Movement (any) Relieved by: Remaining Still Associated Symptoms Associated Symptoms: Unable to Ambulate and Unable to Transfer; Negative for Numbness, Tingling, Radiation to Right Leg, Radiation to Left Leg, Fever, Abdominal Pain, Dysuria, Urinary Retention, Urinary Incontinence, Constipation or Fecal Incontinence Narrative Narrative: Patient states he has a history of back problems, for the past couple days he has had pain in his left low back without radiation into his flank, abdomen, or leg. He took ibuprofen earlier because he was going to some [employer] games, and that helped but it wore off and he was more sore but then he went to bed. Try to get out of bed at night to go to the bathroom, he states it hurt so bad that he cannot move. If he remains still he has no pain, but if he moves a certain way even slightly, his back locks up on him and he states he cannot move so he called EMS for transport here. States he is taking care of his elderly significant other with dementia at home. Prior similar symptoms: Yes and With Prior Back Pain [facility] Medical History Chronic back pain CVA (cerebral vascular accident) Hypertension TIA (transient ischemic attack) Home Medications amlodipine 5 mg tablet 5 mg PO DAILY 04/28/13 [History Last Taken 09/23/18] fluticasone propionate 50 mcg/actuation nasal spray,suspension 2 spray PRN PRN Allergies 04/28/13 [History Last Taken Unknown] lisinopril 20 mg tablet 20 mg PO BID 04/28/13 [History Last Taken 09/23/18] omeprazole 20 mg capsule,delayed release 20 mg PO DAILY 04/28/13 [History Last Taken 09/23/18] tramadol 50 mg tablet 50 mg PO TID 04/28/13 [History Last Taken 09/24/18 N] biotin 10,000 mcg capsule 10,000 mcg PO DAILY 09/24/18 [History Last Taken 09/23/18] erythromycin 5 mg/gram (0.5 %) eye ointment 1 applic BID 09/24/18 [History Last Taken 09/24/18 09:00] B complex-minerals tablet 1 ea PO DAILY 03/14/19 [History Last Taken Unknown] ergocalciferol (vitamin D2) 1,250 mcg (50,000 unit) capsule 10,000 unit PO DAILY 03/14/19 [History Last Taken Unknown] meclizine 25 mg tablet 25 mg PO Q8H PRN Dizziness #20 tabs 04/09/21 [Rx Last Taken Unknown] alfuzosin 10 mg tablet,extended release 24 hr 10 mg PO DAILY 10/12/21 [History Last Taken Unknown] aspirin 81 mg chewable tablet 325 mg PO DAILY@0800 10/12/21 [History Last Taken Unknown] orphenadrine citrate 100 mg tablet,extended release 100 mg PO Q12H PRN muscle spasm #15 tabs 10/12/21 [Rx Last Taken Unknown] Allergy/AdvReac Type Severity Reaction Status Date / Time codeine AdvReac Upset Verified 10/12/21 02:15 Stomach Social History Smoking Status: Former smoker ROS ROS ED Constitutional Constitutional ED: Denies chills or fever(s) Gastrointestinal Gastrointestinal: Denies abdominal pain, constipation, fecal incontinence, nausea or vomiting Genitourinary Genitourinary ED: Reports other Details: no urinary retention ; Denies abdominal discomfort or urinary incontinence Musculoskeletal Musculoskeletal: Reports as per HPI and back pain; Denies neck pain Integumentary Denies rash or wounds Neurologic Neurologic: Denies headache(s), paresthesias or weakness EXAM Physical Exam Const Vital Signs: 10/12/21 02:12 10/12/21 02:16 Temperature 97.7 F L Temperature Source Temporal Pulse Rate 78 Respiratory Rate 16 Blood Pressure 155/67 H Blood Pressure Mean 96 Pulse Ox 97 Oxygen Delivery Method Room Air Positive well nourished and well developed General Appearance ED: well developed and NAD HEENT Negative for trauma or tenderness Eyes PERRL and EOMs intact bilaterally Neck full ROM and supple GI normal to inspection, nondistended, normoactive bowel sounds, soft to palpation and non-tender Palpation: Negative for pulsatile mass Back/Spine normal to inspection Lumbar Spine / Lower Back: ROM limited, paraspinal muscle tenderness left and straight leg raise negative bilaterally; Negative for lumbar spinal tenderness Extremity normal to inspection, full ROM and no pedal edema Neuro oriented x3 and no sensory deficits noted Sensorium / Orientation: alert Motor Exam: strength 5/5 throughout and clonus absent Deep Tendon Reflexes: Rt Patellar (L4): 2+, Lt Patellar (L4): 2+, Rt Ankle (S1): 2+ and Lt Ankle (S1): 2+ Deep Tendon Reflexes Back: Rt Patellar (L4): 2+, Lt Patellar (L4): 2+, Rt Ankle (S1): 2+ and Lt Ankle (S1): 2+ Plantar Reflex: Downgoing: bilateral Psych mental status grossly normal and thought process normal Skin no rashes or lesions noted and no wounds MDM MDM MDM Narrative Medical decision making narrative: The patient feels like this is musculoskeletal and I am in agreement. I do not think he needs a CT to look for intra-abdominal pathology or retroperitoneal pathology here. Three-view x-ray series of the lumbar spine was obtained and is negative for anything acute on my interpretation, chronic changes noted. Radiology in agreement. I gave him an oral Fritch and an injection of Norflex and the patient is feeling so much better that he is getting out of bed on his own and walking throughout the halls and saying that he has no pain and feels great and wants to go home. I will give him a prescription for Norflex to use as needed, which should be less sedating, as he tolerated the IM injection very well. He is comfortable with that plan. Radiography Diagnostic Testing: Clinical Impression(s) from Imaging Studies Lumbar Spine X-Ray 10/12/21 02:37 IMPRESSION: No evidence of acute fracture or subluxation. Degenerative changes. Electronically Signed: Lou Razo MD at 3:31 EDT , Discharge Plan Triage Chief Complaint: Back ED Provider: Power Russell Dx/Rx/DC Orders Clinical Impression: Acute lumbar myofascial strain, Spasm of muscle of lower back Instructions: ED Back Spasm, No Trauma Prescriptions: New orphenadrine citrate 100 mg tablet extended release 100 mg PO Q12H PRN (Reason: muscle spasm) Qty: 15 0RF No Action lisinopril 20 MG tablet 20 mg PO BID amlodipine 5 MG tablet 5 mg PO DAILY tramadol 50 MG tablet 50 mg PO TID omeprazole 20 MG capsule 20 mg PO DAILY fluticasone propionate 1 SPRAY spray,suspension 2 spray NASAL PRN PRN (Reason: Allergies) biotin 10,000 MCG capsule 10,000 mcg PO DAILY erythromycin 1 APPLIC ointment 1 applic Right Eye BID B complex-minerals 1 EACH tablet 1 ea PO DAILY ergocalciferol (vitamin D2) 50,000 UNIT capsule 10,000 unit PO DAILY meclizine [meclizine] 25 MG tablet 25 mg PO Q8H PRN (Reason: Dizziness) Qty: 20 0RF alfuzosin 10 mg Tablet Extended Release 24 Hr 10 mg PO DAILY Rx Instructions: administer after the same meal each day aspirin 81 MG tablet,chewable 325 mg PO DAILY@0800 Primary Care Provider: Shaye Schneider Referrals: Shaye Schneider DO [Primary Care Provider] - 3-5 Days if not improving Disposition Disposition: Home, Self Care
[2021-10-12] MEDS: HYDROcodone Bitartrate/Apap 5/325 Tablet PO (02:55)
[2021-10-12] MEDS: Orphenadrine 60 MG/2 ML Ampul IM (02:55)
[2021-10-12 05:15] VITALS: BP 139/87; PULSE 74; RESP 18; O2SAT 97
== END 2021-10-12 05:16 | disposition home or self-care (01) ==
PROVIDERS: Emergency Provider Emergency Medicine; PCP Internal Medicine; Visit Provider Emergency Medicine
DX: S39.012A Strain of muscle, fascia and tendon of lower back, initial encounter (principal); M62.838 Other muscle spasm; I10 Essential (primary) hypertension; Z79.82 Long term (current) use of aspirin; Z79.899 Other long term (current) drug therapy; Z86.73 Personal history of transient ischemic attack (TIA), and cerebral infarction without residual deficits; Z87.891 Personal history of nicotine dependence; X58.XXXA Exposure to other specified factors, initial encounter
CPT/HCPCS: 72100; 96372; 99284

== ENCOUNTER → 2023-08-20 | Outpatient (CLI) | payer MEDICARE, SELFPAY ==
--- NOTE | 2023-08-20 07:50 | CT_ITS ---
STUDY: CTA NECK WITH CONTRAST REASON FOR EXAM: Male, 88 years old. Carotid stenosis, right RADIATION DOSAGE (If Supplied By Facility): CTDIvol = ( 24.48 ) mGy, DLP = ( 807.79 ) mGycm TECHNIQUE: CT angiography with multi-detector data acquisition was performed from the aortic arch to the skull base following intravenous administration of IV 100mL [id number]-[id number]. MIP images were reconstructed from the axial data set. Post-processing of the angiographic images was performed, with multiplanar reformation and 3D reconstruction. Individualized dose optimization techniques were used for this CT. COMPARISON: Comparison is made with prior study dated April 02, 2021. FINDINGS: There is surgical deformity with resection of the anterior aspect of the right frontal bone and the right frontal sinus as well as the superior aspect of the right orbit. Patient has history of prior trauma. AORTIC ARCH: There is atherosclerotic calcific plaque formation of the aortic arch and great vessels arising from the aortic arch, without a hemodynamically significant stenosis. There is a normal origin of the brachiocephalic, left common carotid, and left subclavian arteries. Atherosclerotic plaque formation at the origin of the right brachiocephalic artery and the left subclavian artery. RIGHT CAROTID ARTERIES: Normal right common carotid artery (CCA). Normal right common carotid bulb. There is extensive atherosclerotic plaque formation of the origin of the right internal carotid artery with an estimated stenosis of greater than 70%. Normal visualized cervical portion of the right internal carotid artery. Normal origin of the right external carotid artery (ECA). LEFT CAROTID ARTERIES: Normal left common carotid artery (CCA). Normal left common carotid bulb. There is mild atherosclerotic plaque formation of the origin of the left internal carotid artery with less than 50% cross sectional diameter stenosis. Normal visualized cervical portion of the left internal carotid artery. Normal origin of the left external carotid artery (ECA). VERTEBRAL ARTERIES: There is enhancement within the bilateral vertebral arteries with a small left vertebral artery, and a dominant right vertebral artery. Once again, there is a tiny strand of contrast within the left vertebral artery with occlusion at the level of the C2 vertebrae. This is unchanged. CT/CTA Neck W/WO Contrast IMPRESSION: High-grade stenosis at the origin of the right internal carotid artery. 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 Electronically Signed: Xavier Gann MD at 9:27 EDT ,
[2023-08-20 08:26] LABS: CREATININE FINGERSTICK < 1.0 mg/dL (0.70-1.30); EGFR FINGERSTICK > 60.0000 mL/min (>60)
== END | disposition home or self-care (01) ==
LOC: CT 07:49
PROVIDERS: PCP Internal Medicine; Referring Provider Internal Medicine; Visit Provider Internal Medicine
DX: I65.21 Occlusion and stenosis of right carotid artery (principal)
CPT/HCPCS: 70498; Q9967

== ENCOUNTER → 2023-09-29 | Outpatient (CLI) | payer MEDICARE, SELFPAY ==
--- NOTE | 2023-09-29 07:52 | CDU_ITS ---
Reason For Study: Rt ICA Stenosis Rt. Velocities/BP Lt. Velocities/BP Prox CCA 80.6/9.3 cm/sec. Prox CCA 83.8/16.3 cm/sec. Mid CCA 101.6/6.6 cm/sec. Mid CCA 72.1/8.4 cm/sec. Dist CCA 62.2/8.4 cm/sec. Dist CCA 96.1/15.7 cm/sec. Prox ICA 203.3/32.0 cm/sec. Prox ICA 67.0/9.4 cm/sec. Mid ICA 95.6/10.6 cm/sec. Mid ICA 62.0/13.8 cm/sec. Dist ICA 77.2/13.4 cm/sec. Dist ICA 73.2/19.3 cm/sec. Rt. ICA/CCA = 2.0. Lt. ICA/CCA = 1.0. Prox ECA 100.3/0.0 cm/sec. Prox ECA 56.6/5.6 cm/sec. Rt. Vert. 55.1/13.4 cm/sec. Lt. Vert. 57.8/8.4 cm/sec. Right Extracranial There is homogeneous, smooth atherosclerotic plaque noted in the right common carotid artery. There is heterogeneous, irregular atherosclerotic plaque noted in the right internal carotid artery. There is heterogeneous, irregular atherosclerotic plaque noted in the right external carotid artery. Antegrade flow is noted in the right vertebral artery. Left Extracranial There is heterogeneous, irregular atherosclerotic plaque noted in the left common carotid artery. There is heterogeneous, irregular atherosclerotic plaque noted in the left internal carotid artery. There is homogeneous, smooth atherosclerotic plaque noted in the left external carotid artery. Antegrade flow is noted in the left vertebral artery. Procedure Carotid Duplex [id number]. This is a Carotid Duplex examination using B-mode, color flow and specral Doppler. The exam was diagnostic. Exam performed in department. VL/Carotid Duplex Ultrasound Interpretation Summary Moderate (50-69%) stenosis right extracranial internal carotid. Mild (<50%) stenosis left extracranial internal carotid. Patent and antegrade vertebrals bilaterally. Ordering Physician: Emerald Daniels Referring Physician: Shaye Schneider M.D. Performed By: Nima Manuel RVT
== END | disposition home or self-care (01) ==
PROVIDERS: PCP Internal Medicine; Referring Provider Physician Assistant; Visit Provider Physician Assistant
DX: I65.21 Occlusion and stenosis of right carotid artery (principal)
CPT/HCPCS: 93880

== ENCOUNTER → 2024-11-03 | Outpatient (CLI) | payer MEDICARE, SELFPAY ==
--- NOTE | 2024-11-03 09:56 | CDU_ITS ---
Reason For Study Reason For Study: Rt ICA Stenosis Rt. Velocities/BP Lt. Velocities/BP Prox CCA 70.5/14.7 cm/sec. Prox CCA 62.3/9.7 cm/sec. Mid CCA 66.7/11.9 cm/sec. Mid CCA 63.4/11.8 cm/sec. Dist CCA 55.4/11.0 cm/sec. Dist CCA 76.9/17.9 cm/sec. Prox ICA 191.6/35.8 cm/sec. Prox ICA 58.4/11.8 cm/sec. Mid ICA 142.5/30.2 cm/sec. Mid ICA 72.0/19.2 cm/sec. Dist ICA 96.1/19.4 cm/sec. Dist ICA 89.1/25.3 cm/sec. Rt. ICA/CCA = 2.9. Lt. ICA/CCA = 1.4. Prox ECA 89.5/8.5 cm/sec. Prox ECA 81.8/6.9 cm/sec. Rt. Vert. 64.8/20.4 cm/sec. Lt. Vert. 24.6/9.7 cm/sec. Right Extracranial There is homogeneous, smooth atherosclerotic plaque noted in the right common carotid artery. There is heterogeneous, irregular atherosclerotic plaque noted in the right internal carotid artery. The right internal carotid artery is very tortuous. The distal right internal carotid artery is not well visualized. There is heterogeneous, irregular atherosclerotic plaque noted in the right external carotid artery. Antegrade flow is noted in the right vertebral artery. Left Extracranial There is heterogeneous, irregular atherosclerotic plaque noted in the left common carotid artery. There is heterogeneous, irregular atherosclerotic plaque noted in the left internal carotid artery. There is heterogeneous, irregular atherosclerotic plaque noted in the left external carotid artery. Antegrade flow is noted in the left vertebral artery. Procedure Carotid Duplex [id number]. This is a Carotid Duplex examination using B-mode, color flow and specral Doppler. The exam was diagnostic. Technically difficult exam - patient unable to lay flat. Exam performed in department. VL/Carotid Duplex Ultrasound Interpretation Summary Moderate (50-69%) stenosis right extracranial internal carotid. Mild (<50%) stenosis left extracranial internal carotid. Patent and antegrade vertebrals bilaterally. Ordering Physician: Emerald Daniels Referring Physician: Shaye Schneider M.D. Performed By: Nima Manuel RVT
== END | disposition home or self-care (01) ==
LOC: CVS 09:54
PROVIDERS: PCP Internal Medicine; Referring Provider Physician Assistant; Visit Provider Physician Assistant
DX: I65.21 Occlusion and stenosis of right carotid artery (principal)
CPT/HCPCS: 93880